=== PATIENT | female | born 2000 | race Caucasian/White ===

== ENCOUNTER 2021-04-30 06:15 | Emergency (ER) | payer OTHER ==
[~2021-04-30] VITALS: Ht 165.1 cm; Wt 79.4 kg
[2021-04-30 06:21] VITALS: BP 131/82
--- NOTE | 2021-04-30 06:25 | NUR ---
PT TAKEN TO BED 7
[2021-04-30] MEDS ORDERED: DICYCLOMINE HCL LIQUID 20 MG, ALUMINUM HYD/MAG/SIMETHICONE 30 ML, LIDOCAINE VISCOUS 2% ... PO ONE ×3 (06:35)
[2021-04-30] MEDS ORDERED: ONDANSETRON 4 MG ODT PO ONE (06:35)
--- NOTE | 2021-04-30 06:49 | NUR ---
ULTRA SOUND OF ABDOMEN DONE AT BEDSIDE.
--- NOTE | 2021-04-30 07:15 | NUR ---
20 Y/O FEMALE C/O EPIGASTRIC PAIN X1 WEEK. REPORTS PAIN IS 6/10 PRESSURE PAIN THAT RADIATES TO HER BACK. STATES NAUSEA/VOMITING/DIARRHEA. WENT TO URGENT CARE LAST WEEK, WAS TOLD SHE HAD GASTRITIS. MEDHX: GASTRITIS NKA
[2021-04-30] MEDS ORDERED: DICYCLOMINE HCL LIQUID 10 MG/5 ML UDC ONE (07:21)
[2021-04-30] MEDS ORDERED: ALUMINUM HYD/MAG/SIMETHICONE 30 ML UDC ONE (07:21)
[2021-04-30 07:33] LABS: BASOPHILS % (AUTO) 0.5 % (0.0-2.0); EOSINOPHILS # (AUTO) 0.2 K/uL (0-0.4); EOSINOPHILS % (AUTO) 3.3 % (0.0-4.0); HEMATOCRIT 38.8 % (36-48); LYMPHOCYTES # (AUTO) 2.3 K/uL (2.5-16.5); LYMPHOCYTES % (AUTO) 32.1 % (20.5-51.1); MEAN CORPUSCULAR HEMOGLOBIN 29 pg (27-31); MEAN CORPUSCULAR HGB CONC 33 g/dL (33-37); MEAN CORPUSCULAR VOLUME 85.8 fL (80-94); MONOCYTES # (AUTO) 0.6 K/uL (0.8-1.0); MONOCYTES % (AUTO) 8.6 % (1.7-9.3); NEUTROPHILS % (AUTO) 55.5 % (42.2-75.2); PLATELET COUNT (AUTO) 324 K/uL (140-450); RED BLOOD CELL COUNT(AUTO) 4.53 MIL/uL (4.20-5.40); RED CELL DISTRIBUTION WIDTH 13.7 % (11.6-13.7); WHITE BLOOD COUNT (AUTO) 7.2 K/uL (4.5-11.0)
--- NOTE | 2021-04-30 07:50 | NUR ---
Note shauna in ED - 04/30/21 at 0800 by [email or web address] Patient will be admitted to care of DR ALVARES. Admited to TELEMETRY. Will go to room 129 - A. [facility] list completed. Report to DAHLIA PEREZ.
[2021-04-30] MEDS ORDERED: MAG-27 PO (08:26)
[2021-04-30 08:35] LABS: ALBUMIN 3.4 g/dL (3.4-5.0); ANION GAP 16.4 (8-16); CARBON DIOXIDE 22.7 mmol/L (21-32); POTASSIUM 4.1 mmol/L (3.5-5.1); TOTAL BILIRUBIN 0.2 mg/dL (0.0-1.0)
[2021-04-30 08:41] LABS: APPEARANCE,URINE CLEAR (CLEAR); BILIRUBIN,URINE NEGATIVE (NEGATIVE); COLOR,URINE ORANGE (YELLOW); LEUKOCYTE ESTERASE ,URINE NEGATIVE (NEGATIVE); NITRITE, URINE NEGATIVE (NEGATIVE); UGLUCOSE NEGATIVE (NEGATIVE)
[2021-04-30 09:01] LABS: BLOOD, URINE 1+ (NEGATIVE); RBC,URINE 0-5 /HPF (0-5); WBC,URINE 0-5 /HPF (0-5)
[2021-04-30 09:17] VITALS: BP 128/75
--- NOTE | 2021-04-30 09:17 | NUR ---
Patient discharged with v/s stable. Written and verbal after care instructions given and explained. Patient alert, oriented and verbalized understanding of instructions. Ambulatory with steady gait. All questions addressed prior to discharge. ID band removed. Patient advised to follow up with PMD. Rx of MYLANTA MAXIMUM STRENGTH LIQ given. Patient educated on indication of medication including possible reaction and side effects. Opportunity to ask questions provided and answered.
[2021-04-30 09:30] LABS: CREATININE 0.8 mg/dL (0.6-1.3)
== END 2021-04-30 09:17 | disposition home or self-care (01) ==
LOC: MED 06:15
DX: K80.20 Calculus of gallbladder without cholecystitis without obstruction (principal); R11.0 Nausea; Z79.899 Other long term (current) drug therapy
CPT/HCPCS: 36415; 76705; 80053; 81001; 81025; 83690; 85025; 99284; Q0092; Q0162